=== PATIENT | female | born 1935 | race Caucasian/White ===

== ENCOUNTER 2016-06-16 13:27 | Outpatient (CLI) | payer OTHER ==
--- NOTE | 2016-06-16 15:05 | DIAGNOSTIC IMAGING REPORT ---
PROCEDURE: DEXA BONE DENSITY STUDY CLINICAL INDICATION: MEMORY LOSS, CVA, SCREENING COMPARISON: None. FINDINGS: LUMBAR SPINE: Bone mineral density 0.649 g/cm2, T score -3.6 osteoporosis LEFT HIP: Bone mineral density 0.581 g/cm2, T score -3.0 osteoporosis LEFT FEMORAL NECK: Bone mineral density 0.467 g/cm2, T score -3.4 osteoporosis FRACTURE RISK CALCULATION ( when applicable): 10-year fracture risk of a major osteoporotic fracture and of a hip fracture not reported because some T-score at or below -2.5 (T score greater or equal to -1.0 to: NORMAL) (T score from -1.1 to -2.4: OSTEOPENIA) (T score ess than or equal to -2.5: OSTEOPOROSIS) IMPRESSION: 1. Osteoporosis spine hip and femoral neck
== END 2016-06-16 23:00 ==
LOC: XR SRH 13:27
DX: M81.8 Other osteoporosis without current pathological fracture (principal)